=== PATIENT | male | born 1930 | race Caucasian/White ===

== ENCOUNTER 2018-09-29 10:44 | Inpatient (IN) | payer MEDICARE, BC ==
[2018-09-29] VITALS (17 sets, daily range): BP systolic 86–134; BP diastolic 41–87
[~2018-09-29] VITALS: Ht 180.3 cm; Wt 81.0 kg
[~2018-09-29 10:44] MED LIST: DUTA0.5C40 PO; FLO0.4C PO
[2018-09-29] MEDS ORDERED: ondansetron/PF 4mg/2ml inj IV ONE (11:00)
[2018-09-29] MEDS ORDERED: ketorolac trometh. 30mg/ml inj. IV ONE (11:00)
[2018-09-29] MEDS ORDERED: morphine 4 MG/ML inj SYRINge IV ONE (11:00)
[2018-09-29] MEDS ORDERED: TETanus/Pertussis (Acell)/Diphther VAC/PF (Tdap-Adult) 0.5ml syringe IM ONE (11:05)
[2018-09-29] MEDS ORDERED: normal saline 1000ML IV soln IVB ONE (11:35)
[2018-09-29] MEDS ORDERED: fentaNYL/PF 50MCG/1 ML 2ML syringe IV ONE (11:35)
[2018-09-29] MEDS ORDERED: propofol 10mg/ml 20ml vial IV ONE (11:35)
[2018-09-29] MEDS ORDERED: potassium Cl 40MEQ/NS 500ml 500 ML IV PRN (11:55)
[2018-09-29] MEDS ORDERED: magnesium 2GM in 50ml NS 50 ML IV PRN (11:55)
[2018-09-29] MEDS ORDERED: acetaminophen 325mg tablet PO PRN ×2 (11:55)
[2018-09-29] MEDS ORDERED: ondansetron/PF 4mg/2ml inj IV PRN ×2 (11:55→14:25)
[2018-09-29] MEDS ORDERED: HYDROmorphone 1 mg/ml syringe IV PRN (11:55)
[2018-09-29] MEDS ORDERED: mag hydrox/Alum hydrox/simeth 30ml oral suspension PO PRN (11:55)
[2018-09-29] MEDS ORDERED: potassium CL 10mEq/100ml bag 100 ML IV PRN (11:55)
[2018-09-29] MEDS ORDERED: HYDROmorphone inj. 0.5 MG/0.5 ML DISP.SYRIN IV PRN (11:55)
[2018-09-29] MEDS ORDERED: magnesium 4gm in 100ml NS 100 ML IV PRN (11:55)
[2018-09-29] MEDS ORDERED: potassium Cl 20 mEq SR tablet PO PRN ×2 (11:55)
[2018-09-29] MEDS ORDERED: magnesium hydroxide 30ml (MOM) UD suspension PO PRN (11:55)
[2018-09-29] MEDS ORDERED: magnesium Cl slow-release 64mg tablet PO PRN (11:55)
[2018-09-29 12:00] LABS: BASOPHILS % (AUTO) 0.5 % (0-1); EOSINOPHILS % (AUTO) 0.7 % (0-6); HEMATOCRIT 40.1 % (42.0-52.0); HEMOGLOBIN 13.3 g/dl (14.0-17.9); LYMPHOCYTES # (AUTO) 1.1 X10'3 (1.1-4.8); LYMPHOCYTES % (AUTO) 19.6 % (21-51); MEAN CORPUSCULAR HEMOGLOBIN 31.6 PG (27.0-31.0); MEAN CORPUSCULAR HGB CONC 33.2 g/dL (33.0-36.5); MEAN CORPUSCULAR VOLUME 95.4 FL (78-98); MONOCYTES # (AUTO) 0.4 X10'3 (0-0.9); MONOCYTES % (AUTO) 7.3 % (2-12); NEUTROPHILS # (AUTO) 4.2 X10'3 (1.8-7.7); NEUTROPHILS % (AUTO) 71.9 % (42-75); PLATELET COUNT 221 X10'3 (140-440); RED CELL DISTRIBUTION WIDTH 14.2 % (11.5-14.5); WHITE BLOOD COUNT 5.8 X10'3 (4.5-11.0)
[2018-09-29 12:17] LABS: ALANINE AMINOTRANSFERASE 23 U/L (12-78); ALBUMIN 3.3 G/DL (3.4-5.0); ALBUMIN/GLOBULIN RATIO 1.1 (1.1-1.5); ALKALINE PHOSPHATASE 71 IU/L (46-116); ANION GAP 5 (8-16); ASPARTATE AMINO TRANSFERASE 15 U/L (10-37); BILIRUBIN,TOTAL 0.6 MG/DL (0.1-1.0); BLOOD UREA NITROGEN 20 MG/DL (7-18); BUN/CREATININE RATIO 24.7 (5.4-32.0); CALCIUM 8.8 MG/DL (8.5-10.1); CHLORIDE 106 MMOL/L (99-107); CREATININE 0.81 MG/DL (0.60-1.10); GLUCOSE 109 MG/DL (70-104); POTASSIUM 4.2 MMOL/L (3.5-5.1); SODIUM 140 MMOL/L (135-145); TOTAL CARBON DIOXIDE 28.6 MMOL/L (24-32); TOTAL PROTEIN 6.3 G/DL (6.4-8.2); eGFR 90 ML/MIN
[2018-09-29 12:24] LABS: PARTIAL THROMBOPLASTIN TIME 23 SECONDS (22-32)
--- NOTE | 2018-09-29 12:45 | NUR ---
TO CT SCAN
--- NOTE | 2018-09-29 13:00 | NUR ---
BACK FROM CT SCAN. PT IN STABLE CONDITION. SPEECH CLEAR, A/OX3. OR TEAM HERE TO TAKE PT TO [facility]
[2018-09-29] MEDS ORDERED: ceFAZolin 1GM/D5W- ADD-VANTAGE 50 ML IV ONE (13:10)
[2018-09-29] MEDS ORDERED: tetracaine 1% (10mg/ml) pres. free inj. ONE (13:15)
[2018-09-29] MEDS ORDERED: fentaNYL/PF 50MCG/1 ML 2ML syringe ONE (13:17)
[2018-09-29] MEDS ORDERED: midazolam 2 mg/2 ml injection ONE (13:18)
[2018-09-29] MEDS ORDERED: propofol inj 20 ML IV ONE (13:18)
[2018-09-29] MEDS ORDERED: ceFAZolin 1000mg inj ONE ×2 (13:35)
[2018-09-29] MEDS ORDERED: ePHEDrine 50MG/ML INJ. ONE (13:46)
[2018-09-29] MEDS ORDERED: proCHLORperazine 10 MG/2 ml inj IV PRN (14:25)
[2018-09-29] MEDS ORDERED: meperidine/PF 25mg/ml syringe IV PRN ×3 (14:25)
[2018-09-29] MEDS ORDERED: ringers solution, lacted 1,000 ML IV SCH (14:25)
[2018-09-29] MEDS ORDERED: morphine 4 MG/ML inj SYRINge IV PRN ×2 (14:25)
--- NOTE | 2018-09-29 15:10 | NUR ---
Received from OR via bed, accompanied by Anesthesiologist. Report received. Initial physical assessment done and recorded.
--- NOTE | 2018-09-29 16:15 | NUR ---
RECEIVED REPORT FROM BRANDON IN [facility]
--- NOTE | 2018-09-29 16:15 | NUR ---
Discharge criteria met, report to receiving floor. Transferred to room in stable condition.
[2018-09-29] MEDS: ceFAZolin 1GM/D5W- ADD-VANTAGE 50 ML IV SCH (16:28)
--- NOTE | 2018-09-29 18:49 | NUR ---
Problems reprioritized. Patient report given, questions answered & plan of care reviewed with Sabrina BENTON.
[2018-09-29] MEDS ORDERED: temazepam 15mg capsule PO PRN (21:00)
[2018-09-29] MEDS: normal saline 1000ml 1,000 ML IV SCH ×2 (21:52→22:43)
[2018-09-30] VITALS (7 sets, daily range): BP systolic 85–99; BP diastolic 48–79
[2018-09-30] MEDS: ceFAZolin 1GM/D5W- ADD-VANTAGE 50 ML IV SCH (02:11)
[2018-09-30] MEDS: HYDROcodone/acetaminophen 10/325mg tab PO PRN ×2 (02:26→07:33)
[2018-09-30] MEDS: normal saline 1000ml 1,000 ML IV SCH ×3 (07:34→23:26)
[2018-09-30] MEDS: enoxaparin 40mg/0.4ml syringe SQ SCH (07:34)
[2018-09-30] MEDS: K and/or MAG REPLACEMENT MC SCH (07:35)
[2018-09-30 07:41] LABS: BASOPHILS % (AUTO) 0.6 % (0-1); EOSINOPHILS % (AUTO) 0.5 % (0-6); HEMATOCRIT 30.9 % (42.0-52.0); HEMOGLOBIN 10.5 g/dl (14.0-17.9); LYMPHOCYTES # (AUTO) 1.1 X10'3 (1.1-4.8); LYMPHOCYTES % (AUTO) 13.9 % (21-51); MEAN CORPUSCULAR HEMOGLOBIN 32.6 PG (27.0-31.0); MEAN CORPUSCULAR VOLUME 95.8 FL (78-98); MONOCYTES # (AUTO) 0.7 X10'3 (0-0.9); MONOCYTES % (AUTO) 8.7 % (2-12); NEUTROPHILS % (AUTO) 76.3 % (42-75); PLATELET COUNT 185 X10'3 (140-440); RED BLOOD COUNT 3.22 X10'6 (4.70-6.10); RED CELL DISTRIBUTION WIDTH 13.8 % (11.5-14.5); WHITE BLOOD COUNT 7.9 X10'3 (4.5-11.0)
[2018-09-30 07:50] LABS: ALBUMIN 2.6 G/DL (3.4-5.0); ANION GAP 4 (8-16); BLOOD UREA NITROGEN 16 MG/DL (7-18); BUN/CREATININE RATIO 21.6 (5.4-32.0); CALCIUM 8.1 MG/DL (8.5-10.1); CHLORIDE 107 MMOL/L (99-107); CHOL/HDL RATIO 2.2 (0.00-4.99); CHOLESTEROL 122 MG/DL (0-200); CREATININE 0.74 MG/DL (0.60-1.10); GLUCOSE 98 MG/DL (70-104); HDL CHOLESTEROL 56 MG/DL (35-60); LDL CHOLESTEROL 57 MG/DL (50-100); MAGNESIUM 1.7 MG/DL (1.5-2.4); PHOSPHORUS 3.8 MG/DL (2.3-4.5); SODIUM 140 MMOL/L (135-145); TOTAL CARBON DIOXIDE 28.8 MMOL/L (24-32); TRIGLYCERIDES 46 MG/DL (20-135); eGFR > 90 ML/MIN
[2018-09-30] MEDS: tamsulosin 0.4mg capsule PO SCH (19:31)
[2018-09-30] MEDS: HYDROcodone/acetaminophen 5mg/325mg tablet PO PRN ×2 (19:31→23:25)
[2018-10-01 02:25] VITALS: BP 92/45
[2018-10-01] MEDS: HYDROcodone/acetaminophen 10/325mg tab PO PRN ×2 (04:50→11:07)
[2018-10-01 06:14] LABS: BASOPHILS % (AUTO) 0.4 % (0-1); EOSINOPHILS # (AUTO) 0.1 X10'3 (0-0.9); EOSINOPHILS % (AUTO) 0.7 % (0-6); HEMATOCRIT 30.6 % (42.0-52.0); HEMOGLOBIN 10.2 g/dl (14.0-17.9); LYMPHOCYTES # (AUTO) 0.9 X10'3 (1.1-4.8); MEAN CORPUSCULAR HEMOGLOBIN 32.1 PG (27.0-31.0); MEAN CORPUSCULAR HGB CONC 33.4 g/dL (33.0-36.5); MEAN CORPUSCULAR VOLUME 95.9 FL (78-98); MEAN PLATELET VOLUME 8.1 FL (7.4-10.4); MONOCYTES # (AUTO) 0.9 X10'3 (0-0.9); NEUTROPHILS # (AUTO) 6.4 X10'3 (1.8-7.7); NEUTROPHILS % (AUTO) 76.9 % (42-75); PLATELET COUNT 169 X10'3 (140-440); RED BLOOD COUNT 3.19 X10'6 (4.70-6.10); WHITE BLOOD COUNT 8.3 X10'3 (4.5-11.0)
[2018-10-01 06:21] LABS: ALBUMIN 2.5 G/DL (3.4-5.0); ANION GAP 3 (8-16); BLOOD UREA NITROGEN 10 MG/DL (7-18); BUN/CREATININE RATIO 13.9 (5.4-32.0); CALCIUM 8.4 MG/DL (8.5-10.1); CHLORIDE 106 MMOL/L (99-107); CREATININE 0.72 MG/DL (0.60-1.10); GLUCOSE 94 MG/DL (70-104); MAGNESIUM 1.8 MG/DL (1.5-2.4); PHOSPHORUS 3.1 MG/DL (2.3-4.5); POTASSIUM 4.1 MMOL/L (3.5-5.1); SODIUM 138 MMOL/L (135-145); TOTAL CARBON DIOXIDE 28.8 MMOL/L (24-32); eGFR > 90 ML/MIN
[2018-10-01] MEDS: enoxaparin 40mg/0.4ml syringe SQ SCH (07:37)
[2018-10-01] MEDS: tamsulosin 0.4mg capsule PO SCH ×2 (07:37→19:57)
[2018-10-01] MEDS: K and/or MAG REPLACEMENT MC SCH (07:37)
[2018-10-01 10:00] VITALS: BP 111/60
[2018-10-01] MEDS: dutasteride 0.5 MG capsule PO SCH (10:17)
[2018-10-01] MEDS: normal saline 1000ml 1,000 ML IV SCH ×2 (13:52→22:27)
[2018-10-01 18:00] VITALS: BP 110/59
--- NOTE | 2018-10-01 18:30 | NUR ---
Patient in room [facility]TH[facility] 4011. I have received report from Radha BENTON and had the opportunity to ask questions and assume patient care.
[2018-10-01 22:00] VITALS: BP 96/47
--- NOTE | 2018-10-02 00:17 | NUR ---
Patient has not voided since levine removal. Patient bladder scanned 874ml. Patient not able to void on his own. Straight cath performed with 800ml out light josie urine.
[2018-10-02 05:21] LABS: BASOPHILS % (AUTO) 0.4 % (0-1); EOSINOPHILS # (AUTO) 0.1 X10'3 (0-0.9); EOSINOPHILS % (AUTO) 0.9 % (0-6); HEMATOCRIT 27.8 % (42.0-52.0); HEMOGLOBIN 9.4 g/dl (14.0-17.9); LYMPHOCYTES % (AUTO) 13.5 % (21-51); MEAN CORPUSCULAR HEMOGLOBIN 32.4 PG (27.0-31.0); MEAN CORPUSCULAR VOLUME 95.3 FL (78-98); MEAN PLATELET VOLUME 8.1 FL (7.4-10.4); MONOCYTES # (AUTO) 0.9 X10'3 (0-0.9); MONOCYTES % (AUTO) 12.7 % (2-12); NEUTROPHILS # (AUTO) 5.3 X10'3 (1.8-7.7); NEUTROPHILS % (AUTO) 72.5 % (42-75); PLATELET COUNT 165 X10'3 (140-440); RED BLOOD COUNT 2.91 X10'6 (4.70-6.10); RED CELL DISTRIBUTION WIDTH 13.6 % (11.5-14.5); WHITE BLOOD COUNT 7.3 X10'3 (4.5-11.0)
[2018-10-02 05:49] LABS: ALBUMIN 2.2 G/DL (3.4-5.0); ANION GAP 6 (8-16); BLOOD UREA NITROGEN 10 MG/DL (7-18); BUN/CREATININE RATIO 17.9 (5.4-32.0); CALCIUM 8.4 MG/DL (8.5-10.1); CHLORIDE 105 MMOL/L (99-107); CREATININE 0.56 MG/DL (0.60-1.10); GLUCOSE 89 MG/DL (70-104); MAGNESIUM 1.8 MG/DL (1.5-2.4); PHOSPHORUS 2.4 MG/DL (2.3-4.5); POTASSIUM 3.8 MMOL/L (3.5-5.1); SODIUM 138 MMOL/L (135-145); TOTAL CARBON DIOXIDE 26.9 MMOL/L (24-32); eGFR > 90 ML/MIN
--- NOTE | 2018-10-02 05:50 | NUR ---
Attempted to put in a Patiño catheter twice and a coude catheter. No success. Bladder scanned patient at 420ml.
--- NOTE | 2018-10-02 06:00 | NUR ---
Called by telegraph office manager that patient is in Afib in 120's. MD called and notified about heart rhythm and unsuccessful of getting a catheter.
--- NOTE | 2018-10-02 06:35 | NUR ---
Problems reprioritized. Patient report given, questions answered & plan of care reviewed with Jelly BENTON.
[2018-10-02] MEDS: tamsulosin 0.4mg capsule PO SCH (08:26)
[2018-10-02] MEDS: enoxaparin 40mg/0.4ml syringe SQ SCH (08:27)
--- NOTE | 2018-10-02 08:35 | NUR ---
telephonic nurse case manager called patient HR in 140 - 150's Page to Dr. Wells MESSAGE: [id number] Dillan Brown Patient is trying to pee, and HR in the 140's - 150's Jelly [id number]
[2018-10-02] MEDS: dutasteride 0.5 MG capsule PO SCH ×2 (08:44→08:46)
[2018-10-02] MEDS: HYDROcodone/acetaminophen 10/325mg tab PO PRN (08:47)
[2018-10-02] MEDS: K and/or MAG REPLACEMENT MC SCH (08:57)
--- NOTE | 2018-10-02 09:00 | NUR ---
Page to Dr. Wells MESSAGE: [phone] Dillan Brown HR is lower 118 NSR, may I get a small IV dose of Ativan to help him urinate? It worked for another post op patient. Jelly [id number]
[2018-10-02] MEDS ORDERED: LORazepam 2 mg/ml vial IV ONE (09:05)
[2018-10-02 10:00] VITALS: BP_SYST 70; BP_SYST 75; BP_DIAS 42; BP_DIAS 43
[2018-10-02 10:21] VITALS: BP 80/51
[2018-10-02 11:11] VITALS: BP 92/51
== END 2018-10-02 15:41 | DRG 481 ==
LOC: ER 10:44 → ORTHO 4S 12:28
PROVIDERS: ADMIT Family Medicine; ATTEND Family Medicine
PROC: 3E0234Z Introduction of Serum, Toxoid and Vaccine into Muscle, Percutaneous Approach (ICD-10-PCS; 2018-09-29)
PROC: 0QSC04Z Reposition Left Lower Femur with Internal Fixation Device, Open Approach (ICD-10-PCS; principal; 2018-09-29 13:17)
DX: S72.462A Displaced supracondylar fracture with intracondylar extension of lower end of left femur, initial encounter for closed fracture (principal); D62 Acute posthemorrhagic anemia; I10 Essential (primary) hypertension; E78.5 Hyperlipidemia, unspecified; E11.9 Type 2 diabetes mellitus without complications; N40.0 Benign prostatic hyperplasia without lower urinary tract symptoms; Z96.642 Presence of left artificial hip joint; Z96.612 Presence of left artificial shoulder joint; F17.200 Nicotine dependence, unspecified, uncomplicated; Z85.828 Personal history of other malignant neoplasm of skin; Z23 Encounter for immunization; Z98.84 Bariatric surgery status; W01.0XXA Fall on same level from slipping, tripping and stumbling without subsequent striking against object, initial encounter; Y93.89 Activity, other specified; Y92.89 Other specified places as the place of occurrence of the external cause; Y99.8 Other external cause status
CPT/HCPCS: 36415; 71045; 73552; 73564; 73700; 76000; 80048; 80053; 80061; 83735; 84100; 84443; 85025; 85610; 85730; 86885; 86900; 86901; 86920; 87070; 90471; 90715; 93005; 96374; 96375; 97110; 97116; 97161; 97530; 99285; A4615; A6222; A6255; A7000; C1713; C1758; G0378; J0690; J1170; J1650; J1885; J2060; J2250; J2270; J2405; J2704; J3010; J7030; J7120

== ENCOUNTER 2019-07-18 00:55 | Emergency (ER) | payer MEDICARE, BC ==
[~2019-07-18] VITALS: Ht 180.3 cm; Wt 81.8 kg
--- NOTE | 2019-07-18 01:25 | NUR ---
RIGHT INGUINAL PAIN DR CRUZ MAUALLY REDUCED HERNIA IN SUPINE POSITION. PLAN TO DISCHARGE AND PATIENT TO FOLLOW UP WITH SURGEON.
[2019-07-18 01:37] VITALS: BP 135/83
== END 2019-07-18 01:39 | disposition home or self-care (01) ==
LOC: ER 00:56
DX: K40.90 Unilateral inguinal hernia, without obstruction or gangrene, not specified as recurrent (principal); Z98.890 Other specified postprocedural states; Z91.048 Other nonmedicinal substance allergy status; Z79.899 Other long term (current) drug therapy
CPT/HCPCS: 99284

== ENCOUNTER 2019-10-28 06:58 | Day surgery (SDC) | payer MEDICARE, BC ==
[2019-10-21 14:14] LABS: BASOPHILS % (AUTO) 0.4 % (0-1); EOSINOPHILS % (AUTO) 0.5 % (0-6); LYMPHOCYTES # (AUTO) 1.6 X10'3 (1.1-4.8); LYMPHOCYTES % (AUTO) 27.8 % (21-51); MEAN CORPUSCULAR HEMOGLOBIN 31.7 PG (27.0-31.0); MEAN CORPUSCULAR HGB CONC 33.1 g/dL (33.0-36.5); MEAN PLATELET VOLUME 8.4 FL (7.4-10.4); MONOCYTES # (AUTO) 0.5 X10'3 (0-0.9); MONOCYTES % (AUTO) 9.2 % (2-12); NEUTROPHILS # (AUTO) 3.7 X10'3 (1.8-7.7); NEUTROPHILS % (AUTO) 62.1 % (42-75); PRE OP HEMATOCRIT 39.1 % (42.0-52.0); PRE OP HEMOGLOBIN 12.9 g/dL (14.0-17.9); PRE OP PLATELET COUNT 220 X10'3 (140-440); RED BLOOD COUNT 4.07 X10'6 (4.70-6.10); RED CELL DISTRIBUTION WIDTH 13.5 % (11.5-14.5)
[2019-10-21 14:35] LABS: ALBUMIN 3.5 G/DL (3.4-5.0); ALBUMIN/GLOBULIN RATIO 1.1 (1.1-1.5); ALKALINE PHOSPHATASE 79 IU/L (46-116); BLOOD UREA NITROGEN 22 MG/DL (7-18); BUN/CREATININE RATIO 19.5 (5.4-32.0); CALCIUM 8.8 MG/DL (8.5-10.1); CHLORIDE 108 MMOL/L (99-107); CREATININE 1.13 MG/DL (0.60-1.10); PRE OP ALT 19 U/L (30-65); PRE OP ANION GAP 5 (8-16); PRE OP AST 17 U/L (10-37); PRE OP BILIRUB, TOTAL 0.4 MG/DL (0.0-1.0); PRE OP GLUCOSE 96 MG/DL (70-104); PRE OP POTASSIUM 4.3 MMOL/L (3.4-5.1); PRE OP SODIUM 144 MMOL/L (135-145); TOTAL CARBON DIOXIDE 30.9 MMOL/L (24-32); TOTAL PROTEIN 6.7 G/DL (6.4-8.2); eGFR 61 ML/MIN
[2019-10-28] VITALS (13 sets, daily range): BP systolic 122–136; BP diastolic 77–84
[~2019-10-28] VITALS: Ht 180.3 cm; Wt 78.7 kg
[~2019-10-28 06:58] MED LIST changes: +BUPIVAcaine/PF 2.5 mg/ml (0.25%) 30ml vial ONE; -DUTA0.5C40 PO; -FLO0.4C PO; +LIDOcaine 1% 30ml preserv. free vial ONE; +NO HOME MEDS; +cefazolin/dext.iso 2gm/50ml 50 ML IV ONE; +famotidine 20mg tablet PO ONE; +ringers solution, lacted 1,000 ML IV SCH
[2019-10-28] MEDS ORDERED: LIDOcaine 1% (10mg/ml) 2ml vial ONE (07:49)
[2019-10-28] MEDS ORDERED: sevoflurane 250ml liquid IH ONE (09:54)
[2019-10-28] MEDS ORDERED: fentaNYL/PF 50MCG/1 ML 2ML syringe ONE (10:04)
[2019-10-28] MEDS ORDERED: midazolam 2 mg/2 ml injection ONE (10:05)
[2019-10-28] MEDS ORDERED: ePHEDrine 50MG/ML INJ. ONE (10:14)
[2019-10-28] MEDS ORDERED: 0.9 % SODIUM CHLORIDE 10 ML VIAL ONE (10:14)
[2019-10-28] MEDS ORDERED: rocuronium 10mg/ml inj IV ONE (10:14)
[2019-10-28] MEDS ORDERED: LIDOcaine 2% (20mg/ml) 5ml vial ONE (10:14)
[2019-10-28] MEDS ORDERED: propofol inj 20 ML IV ONE (10:14)
[2019-10-28] MEDS ORDERED: ondansetron/PF 4mg/2ml inj ONE (10:28)
[2019-10-28] MEDS ORDERED: dexamethasone sod phosphate 4mg/ml inj. ONE (10:28)
[2019-10-28] MEDS ORDERED: ringers solution, lacted 1,000 ML IV SCH (10:42)
[2019-10-28] MEDS ORDERED: meperidine/PF 25mg/ml syringe IV PRN ×3 (10:45)
[2019-10-28] MEDS ORDERED: morphine 2 MG/ML inj. syringe IV PRN (10:45)
[2019-10-28] MEDS ORDERED: ondansetron/PF 4mg/2ml inj IV PRN (10:45)
[2019-10-28] MEDS ORDERED: labetalol 20mg/4ml (5mg/ml) syringe IV PRN (10:45)
[2019-10-28] MEDS ORDERED: acetaminophen 1,000mg/100ml IV 100 ML IV PRN (10:45)
[2019-10-28] MEDS ORDERED: morphine 4 MG/ML inj SYRINge IV PRN (10:45)
[2019-10-28] MEDS ORDERED: hydrALAZINE 20mg/ml inj. IV PRN (10:45)
[2019-10-28] MEDS ORDERED: proCHLORperazine 10 MG/2 ml inj IV PRN (10:45)
[2019-10-28] MEDS ORDERED: neostigmine methylsulfate 1 MG/ML 10ml vial ONE (11:31)
[2019-10-28] MEDS ORDERED: glycopyrrolate 0.2mg/ml inj ONE (11:31)
[2019-10-28] MEDS ORDERED: HYDROcodone/acetaminophen 5mg/325mg tablet PO PRN (11:35)
--- NOTE | 2019-10-28 11:38 | NUR ---
Received from OR via RHIANNON , accompanied by Anesthesiologist DONTE and report given by Anesthesiolgist. PATIENT WITH 3 LAP SITES TO ABDOMEN THAT ARE CDI. VSS. DENIES PAIN. 10L MASK ON WITH 100% SATURATIONS. URINAL PROVIDED UPON WAKING AT HIS REQUEST Addendum: 10/28/19 at 1151 by Miguel Tran RN, RN Amended: Links added.
--- NOTE | 2019-10-28 15:08 | NUR ---
I HAVE REVIEWED D/C INSTRUCTIONS WITH PATIENT AND FAMILY AND THEY HAVE VERBALIZED UNDERSTANDING. PATIENT D/C HOME WITH ALL BELONGINGS AND FAMILY GAVE TRANSPORT HOME. VOIDED, AMBULATED, DENIES PAIN. VSS. OUT VIA WHEELCHAIR TO PERSONAL VEHICLE WITH FRIEND DRIVING HIM HOME. Addendum: 10/28/19 at 1510 by Miguel Tran RN, RN Amended: Links added.
== END 2019-10-28 15:08 | disposition home or self-care (01) ==
LOC: PAS 06:58
PROVIDERS: ATTEND Surgery
DX: K40.90 Unilateral inguinal hernia, without obstruction or gangrene, not specified as recurrent (principal); Z98.890 Other specified postprocedural states; Z98.84 Bariatric surgery status; Z72.89 Other problems related to lifestyle; Z96.612 Presence of left artificial shoulder joint; Z87.891 Personal history of nicotine dependence; Z79.899 Other long term (current) drug therapy; Z11.59 Encounter for screening for other viral diseases; Z80.9 Family history of malignant neoplasm, unspecified; Z82.61 Family history of arthritis
CPT/HCPCS: 36415; 49650; 80053; 82948; 85025; 93005; C1758; C1781; J1100; J2001; J2250; J2405; J2704; J2710; J3010; J3490; J7120; U0003; A4215; A4618

== ENCOUNTER 2019-11-20 19:59 | Emergency (ER) | payer MEDICARE, BC ==
[~2019-11-20] VITALS: Ht 180.3 cm; Wt 79.1 kg
[~2019-11-20 19:59] MED LIST changes: -BUPIVAcaine/PF 2.5 mg/ml (0.25%) 30ml vial ONE; -LIDOcaine 1% 30ml preserv. free vial ONE; -cefazolin/dext.iso 2gm/50ml 50 ML IV ONE; -famotidine 20mg tablet PO ONE; -ringers solution, lacted 1,000 ML IV SCH
--- NOTE | 2019-11-20 20:22 | NUR ---
number for laz corbett to get no of his brother grayson corbett [phone]
[2019-11-20 21:46] LABS: BASOPHILS % (AUTO) 0.6 % (0-1); EOSINOPHILS # (AUTO) 0.2 X10'3 (0-0.9); EOSINOPHILS % (AUTO) 3.4 % (0-6); HEMATOCRIT 37.3 % (42.0-52.0); HEMOGLOBIN 12.3 g/dl (14.0-17.9); LYMPHOCYTES % (AUTO) 38.2 % (21-51); MEAN CORPUSCULAR HEMOGLOBIN 31.7 PG (27.0-31.0); MEAN CORPUSCULAR HGB CONC 33.1 g/dL (33.0-36.5); MEAN CORPUSCULAR VOLUME 95.8 FL (78-98); MEAN PLATELET VOLUME 9.4 FL (7.4-10.4); MONOCYTES # (AUTO) 0.6 X10'3 (0-0.9); MONOCYTES % (AUTO) 10.8 % (2-12); NEUTROPHILS # (AUTO) 2.5 X10'3 (1.8-7.7); PLATELET COUNT 214 X10'3 (140-440); RED BLOOD COUNT 3.89 X10'6 (4.70-6.10); RED CELL DISTRIBUTION WIDTH 13.6 % (11.5-14.5); WHITE BLOOD COUNT 5.3 X10'3 (4.5-11.0)
[2019-11-20 21:51] LABS: ALANINE AMINOTRANSFERASE 18 U/L (12-78); ALBUMIN 3.4 G/DL (3.4-5.0); ALBUMIN/GLOBULIN RATIO 1.1 (1.1-1.5); ALKALINE PHOSPHATASE 74 IU/L (46-116); ANION GAP 9 (8-16); ASPARTATE AMINO TRANSFERASE 28 U/L (10-37); BILIRUBIN,TOTAL 0.3 MG/DL (0.1-1.0); BLOOD UREA NITROGEN 20 MG/DL (7-18); BUN/CREATININE RATIO 18.2 (5.4-32.0); CALCIUM 8.6 MG/DL (8.5-10.1); CHLORIDE 108 MMOL/L (99-107); GLUCOSE 112 MG/DL (70-104); POTASSIUM 3.8 MMOL/L (3.5-5.1); SODIUM 142 MMOL/L (135-145); TOTAL CARBON DIOXIDE 24.6 MMOL/L (24-32); TOTAL PROTEIN 6.6 G/DL (6.4-8.2); eGFR 63 ML/MIN
[2019-11-20 22:31] VITALS: BP 122/73
--- NOTE | 2019-11-20 22:31 | NUR ---
relieving RN for break, pt is resting quietly on quan, " I am ready to go home", waiting for CT results
== END 2019-11-20 22:43 | disposition home or self-care (01) ==
LOC: ER 20:00
DX: R42 Dizziness and giddiness (principal); R11.0 Nausea; Z98.890 Other specified postprocedural states; Z72.89 Other problems related to lifestyle; Z87.891 Personal history of nicotine dependence; Z88.8 Allergy status to other drugs, medicaments and biological substances
CPT/HCPCS: 36415; 70450; 80053; 84484; 85025; 93005; 99285